=== PATIENT | female | born 1955 ===

== ENCOUNTER → 2017-10-17 17:52 | Outpatient (CLI) | payer OTHER | END | disposition home or self-care (01) | LOC: RAD 17:52 | DX: M54.89 Other dorsalgia (principal) ==

== ENCOUNTER 2017-11-05 07:34 | Outpatient (CLI) | payer OTHER | END 2017-11-05 07:47 | disposition home or self-care (01) | LOC: SONOGRAMA 07:34 → MAMO-SONO 07:45 → SONOGRAMA 07:47 | DX: M75.102 Unspecified rotator cuff tear or rupture of left shoulder, not specified as traumatic (principal) ==

== ENCOUNTER 2019-11-09 08:15 | Outpatient (CLI) | payer OTHER | END 2019-11-09 08:26 | disposition home or self-care (01) | LOC: NUCLEAR 08:15 | PROVIDERS: ATTEND Internal Medicine | DX: I11.9 Hypertensive heart disease without heart failure (principal) ==

== ENCOUNTER 2021-04-23 13:02 | Outpatient (CLI) | payer OTHER | END 2021-04-23 13:05 | disposition home or self-care (01) | LOC: MRI 13:02 | PROVIDERS: ATTEND Internal Medicine | DX: M25.561 Pain in right knee (principal) | CPT/HCPCS: 73718 ==